=== PATIENT | male | born 1965 | race Caucasian/White ===

== ENCOUNTER 2024-08-23 13:17 | Outpatient (CLI) | payer OTHER ==
[~2024-08-23 13:17] MED LIST: Iopamidol 370 76% 100 ML VIAL ONE
== END 2024-08-23 13:18 | disposition home or self-care (01) ==
LOC: CT 13:17
PROVIDERS: ATTEND Internal Medicine
DX: R31.0 Gross hematuria (principal); N20.0 Calculus of kidney; N28.1 Cyst of kidney, acquired
CPT/HCPCS: 74178; 82565